=== PATIENT | female | born 1970 | race Caucasian/White ===

== ENCOUNTER → 2016-11-07 | Outpatient (CLI) | payer BC ==
--- NOTE | 2016-11-16 16:09 | DI ---
US BRST U/L OR B/L, MAMMO U/L DIAGNOSTIC, BREAST TOMOSYNTHESIS DIG U/L,11/07/2016 12:00 AM: Clinical History: Abnormal density seen within the left lower inner breast Previous Exam: Mammography performed October 27, 2016 Findings: CC and MLO views as well as breast tomosynthesis are obtained of the left breast revealing normal fib roglandular elements. Physical examination revealed no palpable abnormality. Sonographic evaluation revealed no palpable abnormality. Computer-aided diagnostics were applied. There is scattered fibroglandular elements. Impression: No mammographic nor sonographic evidence of malignancy. BIRADS: 2: Benign findings Recommendations: Annual screening. Note: Breast examination has been discussed and encouraged, and the patient informed to return if the re is any new palpable abnormality in the interval between screening. Overall imaging assessment: Benign findings.
== END ==
LOC: MAMMO 14:45
PROVIDERS: ATTEND Nurse Practitioner Family
DX: R92.8 Other abnormal and inconclusive findings on diagnostic imaging of breast (principal)
CPT/HCPCS: 76641; G0206; G0279

== ENCOUNTER 2017-03-26 16:01 | Observation (INO) ==
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
[2017-03-26] MEDS ORDERED: ONDANSETRON 4 MG/2 ML VIAL IVP ONE (16:35)
[2017-03-26] MEDS ORDERED: Sodium Chloride 0.9% 1,000 ML PRIMARY IV ONE (16:35)
[2017-03-26] MEDS ORDERED: HYDROmorphone 2 MG/1 ML IVP ONE (16:35)
[2017-03-26] MEDS ORDERED: KETOROLAC 15 MG/1 ML VIAL IVP ONE (16:35)
[2017-03-26] MEDS ORDERED: LORazepam 2 MG/1 ML VIAL IVP ONE (16:36)
[2017-03-26 16:47] LABS: BASOPHILS # (AUTO) 0.04 10*3/UL; BASOPHILS % (AUTO) 0.6 % (0-1); EOSINOPHILS # (AUTO) 0.18 10*3/UL; EOSINOPHILS % (AUTO) 2.8 % (0-8); Hematocrit [HCT] 38.7 % (37.0-47.0); Hemoglobin [HGB] 12.9 g/dL (12.0-16.0); LYMPHOCYTES # (AUTO) 1.93 10*3/uL; MEAN CORPUSCULAR HEMOGLOBIN 29.9 PG (27-31); MEAN CORPUSCULAR HGB CONC 33.3 g/dL (33-37); MEAN CORPUSCULAR VOLUME 89.6 FL (81-99); MONOCYTES % (AUTO) 7.8 % (5-15); NEUTROPHILS # (AUTO) 3.77 10*3/UL; NEUTROPHILS % (AUTO) 58.6 % (50-80); RED BLOOD COUNT 4.32 10^6/uL (4.20-5.40)
[2017-03-26 16:49] LABS: PLATELET MORPHOLOGY COMMENT NORMAL MORPHOLOGY (NORM); RBC MORPHOLOGY COMMENT NORMAL MORPHOLOGY (NORM); WBC MORPHOLOGY COMMENT NORMAL MORPHOLOGY (NORM)
[2017-03-26 17:06] LABS: BLOOD UREA NITROGEN 9 mg/dL (7-22); BUN/CREATININE RATIO 11.25 (6-20); MAGNESIUM 1.6 mg/dL (1.6-2.4); SERUM ALBUMIN 4.1 g/dL (3.5-4.8)
[2017-03-26] MEDS ORDERED: HYDROmorphone 2 MG/1 ML IVP PRN ×2 (17:37→20:01)
--- NOTE | 2017-03-26 17:42 | PDOC ---
HPI - History of Present Illness History of Present Illness: This very nice 46-year-old female with past medical history significant for severe arthritis comes to the ER the for severe right hip pain and uncontrollable at home she was seen in the ER last night for the same purposes x -rays and ultrasounds were negative for acute abnormalities x-ray did show severe arthritis she is very unsure of her footing hospitalists were asked to admit for pain control also orthopedic surgeons were consult for possible hip replacement if needed Past Medical History Medical History: Mixed connective tissue disease on immunosuppressive therapy which she has been off for a couple of weeks, Cymbalta, hypertension Tobacco Use: Current Some Day Smoker In the Past 12 Months, Have Used or Abuse Any of the Following Substance: None, Opiate Pain Medication Medication / Allergies Home Medications: Home Medications Medication Instructions Recorded Confirmed Type Lisinopril [Prinivil Tab] 20 mg PO DAILY 06/20/11 03/26/17 History DULoxetine HCl [Cymbalta] 60 mg PO BEDTIME 06/23/11 03/26/17 History Hydroxychloroquine Sulfate 2 tab PO QHS tab 07/05/15 03/26/17 History [Plaquenil] Cyclobenzaprine HCl [Flexeril] 10 mg PO Q8H PRN #20 tab 03/25/17 03/26/17 Rx oxyCODONE/APAP 7.5/325 Tab 1 - 2 ea PO Q6H PRN #20 tab 03/25/17 03/26/17 Rx [Percocet 7.5/325 Tab] Aspirin [Aspir 81] 81 mg PO DAILY 03/26/17 03/26/17 History Furosemide [Lasix] 40 mg PO DAILY 03/26/17 03/26/17 History Tofacitinib Citrate [Xeljanz Xr] 11 mg PO DAILY 03/26/17 03/26/17 History Allergies/Adverse Reactions: Allergies 3 Allergy/AdvReac Type Severity Reaction Status Date / Time hydromorphone HCl AdvReac Intermediate NAUSEA Verified 03/26/17 19:02 [From Dilaudid] Review of Systems - Review of Systems All Systems: Reviewed & No Additional Complaints Except as Stated - Respiratory Respiratory: DENIES: Negative System Review, Cough, Sputum, Dyspnea At Rest, Dyspnea with Exertion, Pleuritic Pain, Hemoptysis, Wheezing, Other, See HPI - Cardiovascular Cardiovascular: DENIES: Negative System Review, Chest Pain, Edema, Syncope, Palpitations, Orthopnea, Paroxysmal Nocturnal Dyspnea, Other, See HPI - Gastrointestinal Gastrointestinal / Abdominal: DENIES: Negative System Review, Nausea, Vomiting, Diarrhea, Constipation, Abdominal Pain, Bloody Stool, Poor Appetite, Heartburn, Regurgitation, Bloating, Lactose Intolerance, Melena, Bright Red Blood per Rectum, Other, See HPI - Musculoskeletal Musculoskeletal: REPORTS: Joint Pain - Hips - Neurological Neurologic: DENIES: Negative System Review, Headache, Numbness/Paresthesia, Tremors, Weakness, Seizures, Head Trauma, LOC, Dizziness, Confusion, Memory Loss , Difficulty Walking, Incoordination, Other, See HPI Exam - Vitals Vital Signs: Vital Signs Temperature 98.2 F Temperature Source Temporal Artery Scan Pulse Rate [Pulse Oximeter 101 Right] Respiratory Rate 18 Blood Pressure [Right Radial 160/119 Artery] Pulse Ox 98 Oxygen Delivery Method Room Air Height 5 ft 7 in Weight 270 lb - General General Appearance: No Acute Distress, Cooperative - Head Head Exam: Normal Inspection, Normocephalic, Atraumatic - Eye Eye Exam: POSITIVE: Normal Appearance, PERRL, EOMI, No Scleral Icterus - Respiratory Respiratory Exam: POSITIVE: Clear to Auscultation - Bilaterally, Breathing Non Labored, Normal To Percussion, Normal to Percussion and Palpation - Cardiovascular Cardiovascular Exam: POSITIVE: RRR, No Murmur, No Clicks, No Gallops, No Rubs, PMI Non-Displaced - GI/Abdominal GI/Abdominal Exam: POSITIVE: Normal Bowel Sounds, Non Tender, Non Distended, Soft, No Masses, No Hepatomegaly, No Splenomegaly, No Organomegaly - Extremities Extremities Exam: POSITIVE: Tenderness Additional Extremities Exam Details: Right hip pain even at rest with minimal movement Results - Labs CBC and BMP: 03/26/17 16:46 03/26/17 16:46 Assessment and Plan - Patient Problems (1) Hypokalemia Current Visit: Yes Status: Acute Comment: Replace with by mouth K-dur Code(s): E87.6 - Hypokalemia (2) Hip pain, right Current Visit: Yes Status: Acute Comment: consult ortho and pain controll with dilaudid Code(s): M25.551 - Pain in right hip (3) Osteoarthritis of right hip Current Visit: No Status: Acute Comment: Consult orthopedic surgery for evaluation dye lauded for pain management failed outpatient pain control Code(s): M16.11 - Unilateral primary osteoarthritis, right hip
[2017-03-26] MEDS ORDERED: ONDANSETRON 4 MG/2 ML VIAL IVP PRN (18:54)
[2017-03-26] MEDS ORDERED: ACETAMINOPHEN 325 MG TABLET PO PRN (18:54)
[2017-03-26] MEDS ORDERED: DOCUSATE 100 MG CAPSULE PO PRN (18:54)
[2017-03-26] MEDS ORDERED: CALCIUM CARBONATE 500 MG (TUMS) CHEWABLE TABLET PO PRN (18:54)
[2017-03-26] MEDS ORDERED: LIDOCAINE W/ SODIUM BICARB 0.5 ML SYR SUBD PRN (18:54)
[2017-03-26] MEDS ORDERED: HYDROXYCHLOROQUINE SULFATE PO SCH (21:00)
[2017-03-26] MEDS ORDERED: DULOXETINE 60 MG CAPSULE PO SCH (21:00)
[2017-03-26] MEDS: POTASSIUM CHLORIDE 20 MEQ TAB PO SCH (21:01)
[2017-03-27] MEDS: KETOROLAC 15 MG/1 ML VIAL IVP PRN ×3 (00:36→14:24)
[2017-03-27] MEDS: HYDROmorphone 2 MG/1 ML IVP PRN ×3 (02:26→12:45)
[2017-03-27] MEDS: NORMAL SALINE 10 ML SYRINGE FLUSH IVP PRN ×3 (07:55→14:24)
[2017-03-27] MEDS: POTASSIUM CHLORIDE 20 MEQ TAB PO SCH (08:25)
[2017-03-27] MEDS ORDERED: FUROSEMIDE 20 MG TABLET PO SCH (09:00)
[2017-03-27] MEDS ORDERED: DULOXETINE 60 MG CAPSULE PO SCH (09:00)
[2017-03-27] MEDS ORDERED: LISINOPRIL 20 MG TABLET PO SCH (09:00)
[2017-03-27] MEDS ORDERED: ASPIRIN EC 81 MG TABLET PO SCH (09:00)
[2017-03-27] MEDS ORDERED: Acetaminophen 1000mg Inj 1,000 MG/100 ML VIAL IV PRN ×2 (10:43→11:15)
--- NOTE | 2017-03-27 11:23 | PDOC(PROG) ---
Interval History: Patient is still complaining of pain in the right hip and thigh lauded this seems to work briefly Toradol did not work Tylenol is not working she is getting headaches from the dye lauded I discussed the case with orthopedic surgery he recommended the Marcaine injection under fluoroscopy from radiology department I called the radiology department and scheduled this she can be discharged home after her shot and follow-up with ourselves as already scheduled Objective : Data - Labs CBC and BMP: 03/26/17 16:46 03/26/17 16:46 Assessment and Plan - Patient Problems (1) Hypokalemia Current Visit: Yes Status: Acute Code(s): E87.6 - Hypokalemia (2) Hip pain, right Current Visit: Yes Status: Acute Code(s): M25.551 - Pain in right hip (3) Osteoarthritis of right hip Current Visit: No Status: Inactive Code(s): M16.11 - Unilateral primary osteoarthritis, right hip
--- NOTE | 2017-03-27 11:25 | DCSUMMARY ---
Hospitalization Summary Hospital Course: Final Discharge Diagnosis: Current Visit Problems Problem Status Onset Code Hip pain, right Acute M25.551 Hypokalemia Acute E87.6 Diagnostic Data, Laboratory Data, and Procedures of Signifigance: Laboratory Results 03/26/17 03/26/17 03/26/17 Range/Units 16:46 16:46 16:46 WBC 6.43 (4.8-10.8) 10^3/uL RBC 4.32 (4.20-5.40) 10^6/uL Hgb 12.9 (12.0-16.0) g/dL Hct 38.7 (37.0-47.0) % MCV 89.6 (81-99) FL MCH 29.9 (27-31) PG MCHC 33.3 (33-37) g/dL RDW Std Deviation 47.4 (39-50) fL RDW Coeff of Delgado 14.8 H (11.5-14.5) % Plt Count 304 (140-350) 10*3/uL MPV 10.0 (7.4-12.2) FL Immature Gran % (Auto) 0.2 (0-5) % Neut % (Auto) 58.6 (50-80) % Lymph % (Auto) 30.0 (10-50) % Wharton % (Auto) 7.8 (5-15) % Eos % (Auto) 2.8 (0-8) % Baso % (Auto) 0.6 (0-1) % Immature Gran # (Auto) 0.01 10*3/UL Neut # (Auto) 3.77 10*3/UL Lymph # (Auto) 1.93 10*3/uL Wharton # (Auto) 0.50 (0.3-0.8) 10*3/UL Eos # (Auto) 0.18 10*3/UL Baso # (Auto) 0.04 10*3/UL WBC Morphology Comment Normal morphology (NORM) Plt Morphology Comment Normal morphology (NORM) RBC Morph Comment Normal morphology (NORM) Sodium 142 (135-145) meq/L Potassium 3.5 L (3.8-5.2) meq/L Chloride 105 (98-112) meq/L Carbon Dioxide 26 (23-33) meq/L Anion Gap 11 (5-20) BUN 9 (7-22) mg/dL Creatinine 0.8 (0.50-1.20) mg/dL Estimated GFR > 60 (>60 ml/min/1.73m(2)) BUN/Creatinine Ratio 11.25 (6-20) Glucose 159 H (78-110) mg/dL Calculated Osmolality 295.0 H (267-292) mOsm/kg Calcium 9.0 (8.7-10.7) mg/dL Magnesium 1.6 (1.6-2.4) mg/dL Total Bilirubin 0.4 (0.3-1.2) mg/dL AST 48 H (8-39) IU/L ALT 78 H (9-52) IU/L Alkaline Phosphatase 47 (38-126) IU/L NT-Pro-B Natriuret Pep 76.4 (0-125) PG/ML Total Protein 7.2 (6.1-8.0) g/dL Albumin 4.1 (3.5-4.8) g/dL Globulin 3.1 (2.50-4.10) g/dL Albumin/Globulin Ratio 1.30 (1.3-2.0) mg/g History and Physical pertinent to Admission: This very nice 46-year-old female with arthritis of her right hip comes into the hospital because of uncontrolled pain she was admitted overnight for pain control. Course of Hospitalization: Patient is still complaining of pain in the right hip and thigh lauded this seems to work briefly Toradol did not work Tylenol is not working she is getting headaches from the dye lauded I discussed the case with orthopedic surgery he recommended the Marcaine injection under fluoroscopy from radiology department I called the radiology department and scheduled this she can be discharged home after her shot and follow-up with ortho which is already scheduled On the date of discharge, the patient was examined: Gen.: No acute distress, alert, nontoxic Heart: Regular rate and rhythm, no murmurs, clicks, gallops, or rubs Lungs: Clear to auscultation bilaterally, breathing is nonlabored Abdomen/GI: Normal tones on auscultation, soft, nontender, nondistended Musculoskeletal/extremities: No clubbing, cyanosis, or edema Vitals reviewed and are listed below Vital Signs (24 hrs) Temp Pulse Pulse Resp BP BP Pulse Ox 03/27/17 08:55 97.6 F 77 16 97/70 93 03/27/17 05:29 96 03/27/17 04:04 97.2 F 71 16 93/58 96 03/27/17 00:07 98.2 F 80 16 90/66 93 03/26/17 20:23 97.5 F 86 20 132/95 97 03/26/17 19:13 97.5 F 86 20 132/95 97 03/26/17 19:00 97.2 F 76 16 135/84 99 03/26/17 16:22 98.2 F 101 H 18 160/119 98 Assessment and Plan: 1. As per discharge assessments above 2. Disposition: Home 3. Condition on discharge, stable and improved. 4. Diet: regular diet 5. Activities: resume normal activities 6. Follow-Up: Orthopedic surgery patient already has appointment 1. PCP 2. 7. Medications at the Time of Discharge: Home Medications Medication Instructions Recorded Confirmed Type Lisinopril [Prinivil Tab] 20 mg PO DAILY 06/20/11 03/26/17 History DULoxetine HCl [Cymbalta] 60 mg PO BEDTIME 06/23/11 03/26/17 History Hydroxychloroquine Sulfate 2 tab PO QHS tab 07/05/15 03/26/17 History [Plaquenil] Cyclobenzaprine HCl [Flexeril] 10 mg PO Q8H PRN #20 tab 03/25/17 03/26/17 Rx oxyCODONE/APAP 7.5/325 Tab 1 - 2 ea PO Q6H PRN #20 tab 03/25/17 03/26/17 Rx [Percocet 7.5/325 Tab] Aspirin [Aspir 81] 81 mg PO DAILY 03/26/17 03/26/17 History Furosemide [Lasix] 40 mg PO DAILY 03/26/17 03/26/17 History Tofacitinib Citrate [Xeljanz Xr] 11 mg PO DAILY 03/26/17 03/26/17 History 3 Generic Name Dose Route Start Last Admin Trade Name Freq PRN Reason Stop Dose Admin Acetaminophen 650 mg 03/26/17 18:54 Tylenol PO Q6H PRN Pain or Fever Aspirin 81 mg 03/27/17 09:00 03/27/17 08:24 Aspirin Ec PO 81 mg DAILY WILFRED Administration Calcium Carbonate 1 - 2 tab 03/26/17 18:54 Tums PO Q6H PRN Heartburn Docusate Sodium 100 mg 03/26/17 18:54 03/27/17 08:25 Colace PO 100 mg BID PRN Administration Constipation Duloxetine HCl 60 mg 03/27/17 09:00 03/27/17 09:26 Cymbalta PO 60 mg DAILY WILFRED Administration Furosemide 40 mg 03/27/17 09:00 03/27/17 08:24 Lasix PO 40 mg DAILY WILFRED Administration Hydromorphone HCl 1 mg 03/27/17 00:16 03/27/17 08:25 Dilaudid Inj IVP 1 mg Q4H PRN Administration Pain Acetaminophen 1,000 mg in 100 mls @ 400 mls/hr 03/27/17 11:15 03/27/17 11:18 Ofirmev 1000mg Inj IV 400 mls/hr Q8H PRN Administration Pain Ketorolac Tromethamine 15 mg 03/27/17 00:15 03/27/17 07:54 Toradol Inj IVP 15 mg Q6H PRN Administration Pain Lidocaine HCl 0.5 ml 03/26/17 18:54 Lidocaine Buffered Inj SUBD ONCE PRN IV Starts Lisinopril 20 mg 03/27/17 09:00 03/27/17 08:24 Prinivil PO 20 mg DAILY WILFRED Administration Non-Formulary Medication 2 tab 03/26/17 21:00 03/26/17 21:01 Hydroxychloroquine Sulfate [Plaquenil] PO 2 tab BEDTIME WILFRED Administration Non-Formulary Medication 11 mg 03/27/17 14:00 Tofacitinib Citrate [Xeljanz Xr] PO DAILY@1400 WILFRED Ondansetron HCl 4 mg 03/26/17 18:54 Zofran Inj IVP Q4H PRN NAUSEA / VOMITING Potassium Chloride 40 meq 03/26/17 21:00 03/27/17 08:25 Klor-Con PO 40 meq BID WILFRED Administration Sodium Chloride 5 - 20 ml 03/26/17 18:54 03/27/17 07:55 Saline Flush IVP 10 ml BID PRN Administration Flush 8. Time, care, counseling and coordination of care for this discharge is greater than 30 minutes. Exam - Vitals Vital Signs: Vital Signs Temperature 97.6 F Temperature Source Temporal Artery Scan Pulse Rate [Pulse Oximeter 77 Right] Pulse Rate 76 Respiratory Rate 16 Blood Pressure [Right Radial 97/70 Artery] Blood Pressure 135/84 Pulse Ox 93 Oxygen Flow Rate 2 Oxygen Delivery Method Room Air Height 5 ft 7 in Weight 291 lb 9.6 oz Patient Problems - Patient Problem List (1) Hypokalemia Current Visit: Yes Status: Acute Code(s): E87.6 - Hypokalemia Category: Medical (2) Hip pain, right Current Visit: Yes Status: Acute Code(s): M25.551 - Pain in right hip Category: Medical (3) Osteoarthritis of right hip Current Visit: No Status: Inactive Code(s): M16.11 - Unilateral primary osteoarthritis, right hip Category: Medical
[2017-03-27 15:27] VITALS: BP 113/84; RESP 20; TEMP 97.8; O2SAT 94
--- NOTE | 2017-03-27 16:38 | DI ---
Fluoroscopically guided right hip steroid injection, March 27, 2017. History: Osteoarthritis. Severe hip pain. Comparison: March 25, 2017. Procedure: The procedure was described in detail to the patient. The patient elected to proceed. Writ ten informed consent was obtained. The patient was then placed on fluoroscopy table and the right hip was localized. The skin was prepped and draped in a sterile manner and anesthetized with 1% lidocain e. Utilizing fluoroscopic guidance, a 22-gauge spinal needle was advanced into the right femoral acet abular joint through an anterior oblique approach. Small amount of contrast was injected to confirm n eedle placement. Subsequently 40 mg Kenalog steroid and 2 mL 0.5% ropivacaine was injected without di fficulty. The patient tolerated the procedure well. Total fluoroscopy time: 0.8 minutes Number images: 7 Impression: Successful fluoroscopically guided right hip steroid injection.
== END 2017-03-27 16:23 | disposition home or self-care (01) ==
LOC: MED/SURG 16:01 → ER 16:01
PROVIDERS: ADMIT Internal Medicine; ATTEND Internal Medicine

== ENCOUNTER 2018-02-21 10:41 | Observation (INO) ==
[~2018-02-21 10:41] MED LIST: LIDOCAINE W/ SODIUM BICARB 0.5 ML SYR SUBD ONE; Lactated Ringers 1,000 ML PRIMARY IV ONE; Nasal Sanitizer POPSWAB ampule 3 AMP (Nozin) PREOP DOSE ENOS SCH; ceFAZolin Inj 2gm (Premix) 2 GM/50 ML BAG IV ONE
[2018-02-21] MEDS ORDERED: LIDOCAINE W/ SODIUM BICARB 0.5 ML SYR ONE ×3 (10:48→12:06)
[2018-02-21] MEDS ORDERED: Lactated Ringers 1,000 ML PRIMARY IV ONE ×3 (10:48→17:55)
[2018-02-21] MEDS ORDERED: ceFAZolin Inj 3 GM in Sodium Chloride 0.9% 100 ML IV ONE (11:30)
[2018-02-21] MEDS: HYDROmorphone 2 MG/1 ML IVP PRN ×2 (13:55→14:01)
[2018-02-21] MEDS ORDERED: DEXAMETHASONE PF 10 MG/1 ML VIAL ONE (14:43)
[2018-02-21] MEDS ORDERED: Sodium Chloride 0.9% vial 10 ML ONE (14:43)
[2018-02-21] MEDS ORDERED: BUPIVACAINE 0.25% W/ EPI - 10 ML VIAL ONE (14:43)
[2018-02-21] MEDS ORDERED: BACITRACIN 50,000 UNIT VIAL IRRIG ONE (14:43)
[2018-02-21] MEDS ORDERED: Propofol 1,000 MG/100 ML VIAL IV ONE ×2 (15:50→17:52)
[2018-02-21] MEDS ORDERED: REMIFENTANIL 1 MG/1 ML IV ONE (15:52)
[2018-02-21] MEDS ORDERED: REMIFENTANIL HCL 2 MG VIAL IV ONE (15:52)
[2018-02-21] MEDS ORDERED: LIDOCAINE MPF 2% - 5 ML (20 MG/1 ML) ONE (15:56)
[2018-02-21] MEDS ORDERED: fentaNYL Inj 250 MCG/5 ML VIAL ONE ×3 (15:56→19:54)
[2018-02-21] MEDS ORDERED: MIDAZOLAM 5 MG/1 ML ONE (15:56)
[2018-02-21] MEDS ORDERED: PROPOFOL 10 MG/1 ML (200 MG/20 ML) VIAL IV ONE ×3 (15:58→19:14)
[2018-02-21] MEDS ORDERED: ONDANSETRON 4 MG/2 ML VIAL ONE (16:04)
[2018-02-21] MEDS ORDERED: Lactated Ringers 2,000 ML PRIMARY IV ONE (17:13)
[2018-02-21] MEDS ORDERED: Nalbuphine Inj 20 MG/ML Ampule IVP PRN (19:47)
[2018-02-21] MEDS ORDERED: LIDOCAINE W/ SODIUM BICARB 0.5 ML SYR SUBD PRN (19:47)
[2018-02-21] MEDS ORDERED: fentaNYL Inj 100 MCG/2 ML VIAL IVP PRN (19:47)
[2018-02-21] MEDS ORDERED: KETOROLAC 15 MG/1 ML VIAL IM PRN (19:47)
--- NOTE | 2018-02-21 19:49 | CRNA.PROGR ---
Anesthesia Recovery Phase I - Post Anesthesia Evaluation Pain Level: 5
--- NOTE | 2018-02-21 19:50 | CRNA.PROGR ---
Anesthesia Time - Procedure/Recovery Time Start Date: 02/21/18 End Date: 02/21/18 Anesthesia : Time In: 16:12 Anesthesia : Time Out: 19:42 Anesthesia : Total Time: 210 - Total Anesthesia Time Total Anesthesia Time (minutes): 210 - Other Weight: 128.82 kg Height: 5 ft 7 in Body Mass Index (BMI): 44.4 Physical Status: P3 Anesthesia Type: General Anesthesia : ET (TIVA)
[2018-02-21] MEDS: fentaNYL Inj 250 MCG/5 ML VIAL IVP PRN ×3 (19:53→20:30)
[2018-02-21] MEDS ORDERED: KETOROLAC 30 MG/1 ML VIAL ONE (19:53)
[2018-02-21] MEDS ORDERED: OXYMETAZOLINE 0.05% 15 ML NASAL SPRAY ONE (19:54)
--- NOTE | 2018-02-21 20:02 | NEURO.PROG ---
Subjective Post Op Day: 0 Pain Management: IV Franklin Catheter: Yes Diet: Regular Ambulating: No Additional Details: Waking up in PACU. States leg feels better. Moving all extremities. Good knee flexion/dorsiflexion/plantarflexion bilaterally. PLAN: Transfer to floor when ready. Continue post-operative antibiotics. Continue post-operative pain control. Advance diet. Mobilize in am. Objective : Data - Vital Signs Vital Signs and I&O: Intake and Output (24hr x 4 totals) 02/19/18 02/20/18 02/21/18 02/22/18 05:59 05:59 05:59 05:59 Output Total 950 / 950 Balance -950 / -950
[2018-02-21] MEDS ORDERED: KETOROLAC 30 MG/1 ML VIAL IVP ONE (20:21)
[2018-02-21] MEDS ORDERED: PROMETHAZINE 25 MG/1 ML VIAL IM PRN (20:35)
[2018-02-21] MEDS ORDERED: HYDROcodone-APAP 5 MG -325 MG TABLET PO PRN (20:35)
[2018-02-21] MEDS ORDERED: Metoclopramide Inj 10 MG/2 ML VIAL IVP PRN (20:35)
[2018-02-21] MEDS ORDERED: HYDROcodone-APAP 10 MG-325 MG TABLET PO PRN (20:35)
[2018-02-21] MEDS ORDERED: HYDROcodone-APAP 7.5 MG-325 MG TABLET PO PRN (20:35)
[2018-02-21] MEDS ORDERED: Vancomycin-PHA to Dose IV SCH (20:35)
[2018-02-21] MEDS ORDERED: BISACODYL 5 MG TABLET PO PRN (20:35)
[2018-02-21] MEDS ORDERED: Prochlorperazine Edisylate Inj 10mg/2ml vial IVP PRN (20:35)
[2018-02-21] MEDS ORDERED: DOCUSATE 100 MG CAPSULE PO PRN (20:35)
[2018-02-21] MEDS ORDERED: MAGNESIUM CITRATE 296 ML SOLUTION PO PRN (20:35)
[2018-02-21] MEDS ORDERED: Ondansetron ODT Tab 4 MG TAB PO PRN (20:35)
[2018-02-21] MEDS ORDERED: Fleet Enema 133ml RECTAL PRN (20:35)
[2018-02-21] MEDS ORDERED: MAGNESIUM 400 MG/5 ML - 30 ML (MILK OF MAGNESIA) PO PRN (20:35)
[2018-02-21] MEDS: Dexamethasone Tab 4 MG TABLET PO SCH (21:05)
[2018-02-21] MEDS: MORPHINE SULFATE 2 MG/1 ML IVP PRN (21:18)
[2018-02-21] MEDS: Pregabalin Cap 150mg capsule PO SCH (22:00)
[2018-02-21] MEDS ORDERED: fentaNYL Inj 250 MCG/5 ML VIAL IVP ONE (22:26)
[2018-02-21] MEDS: oxyCODONE/APAP 10/325 Tab 1 EACH TAB PO PRN (22:51)
--- NOTE | 2018-02-21 22:55 | CONSULT ---
Consult Note - Consult Consult Date: 02/21/18 Requesting Physician: Dr. Pham Primary Care Provider: SILVINO LONG - History of Present Illness History of Present Illness: This is a 47 years old female with medical history significant for history of hypertension, diabetes, rheumatoid arthritis on Xeljanz who was admitted to the hospital to have back surgery and was done by Dr. Pham today. The hospitalist service were consulted for management of medical issues. Apart from pain in her back she is denying other symptoms. There is no nausea, no shortness of breath. Past Medical History Medical History: 1. Rheumatoid arthritis on Xeljanz. 2. Hypertension were controlled. 3. Diabetes on metformin well-controlled. 4. On Cymbalta for pain control Surgical History: 1. History of hysterectomy. 2. History of cholecystectomy. 3. History of tonsillectomy. 4. History of previous back surgery Family History: Reviewed an Not Pertinent Past Social History: Does not smoke or drink now drugs. Tobacco Use: Never Smoker In the Past 12 Months, Have Used or Abuse Any of the Following Substance: Opiate Pain Medication Alcohol Use: None Review of Systems - Review of Systems All Systems: Reviewed & No Additional Complaints Except as Stated Medication / Allergies Home Medications: Home Medications 3 Medication Instructions Recorded Confirmed Type Lisinopril [Prinivil Tab] 20 mg PO DAILY 06/20/11 02/21/18 History DULoxetine HCl [Cymbalta] 60 mg PO BEDTIME 06/23/11 02/21/18 History Furosemide [Lasix] 40 mg PO DAILY 03/26/17 02/21/18 History Tofacitinib Citrate [Xeljanz Xr] 11 mg PO DAILY 03/26/17 02/21/18 History Pregabalin [Lyrica] 150 mg PO BID 01/22/18 02/21/18 History metformin 500 mg tablet 500 mg PO QDAY tab 01/31/18 02/21/18 History hydroxychloroquine 200 mg tablet 200 mg PO QDAY tab 02/07/18 02/21/18 History Docusate Sodium [Colace] 100 mg PO BID PRN cap 02/22/18 Rx oxyCODONE/APAP 10/325 Tab 1 - 2 ea PO Q6H PRN #60 tab 02/22/18 Rx [Percocet 10/325 Tab] Allergies/Adverse Reactions: Allergies 3 Allergy/AdvReac Type Severity Reaction Status Date / Time No Known Allergies Allergy Verified 02/21/18 11:06 Exam - Vitals Vital Signs: Vital Signs Temperature 96.8 F Temperature Source Temporal Artery Scan Pulse Rate [Pulse Oximeter] 92 Pulse Rate 98 Respiratory Rate 20 Blood Pressure [Right Radial 103/71 Artery] Blood Pressure 103/69 Pulse Ox 92 Oxygen Flow Rate 2 Oxygen Delivery Method Nasal Cannula Height 5 ft 7 in Weight 284 lb - General General Appearance: Cooperative, Obese Additional General Exam Details: Appears in pain - Head Head Exam: Normal Inspection - Eye Eye Exam: POSITIVE: Normal Appearance - ENT ENT Exam: POSITIVE: Normal Exam - Neck Neck Exam: Normal Inspection - Respiratory Respiratory Exam: POSITIVE: Clear to Auscultation - Bilaterally - Cardiovascular Cardiovascular Exam: POSITIVE: RRR - GI/Abdominal GI/Abdominal Exam: POSITIVE: Normal Bowel Sounds, Non Tender, Non Distended, Soft, No Organomegaly - Rectal Rectal Exam: POSITIVE: Deferred - External Exam: POSITIVE: Deferred - Extremities Extremities Exam: POSITIVE: Normal Inspection - Neurological Neurological Exam: POSITIVE: Alert, Oriented x 3, CN II-XII Intact, No Facial Droop, Speech Intact / Clear - Psychiatric Psychiatric Exam: POSITIVE: Normal Affect Results - Labs CBC and BMP: 02/22/18 07:25 02/22/18 07:25 Assessment and Plan - Patient Problems (1) Chronic back pain Current Visit: No Status: Acute Comment: Status post surgery management per Dr. Pham Code(s): M54.9 - Dorsalgia, unspecified; G89.29 - Other chronic pain (2) Hypertension Current Visit: No Status: Acute Comment: I think we'll hold lisinopril for now. We'll see what is her blood pressure in the morning and then will decide to continue with our hold it. Code(s): I10 - Essential (primary) hypertension (3) History of rheumatoid arthritis Current Visit: Yes Status: Acute Comment: We'll hold off on her Xeljanz tomorrow. Code(s): Z87.39 - Personal history of other diseases of the musculoskeletal system and connective tissue
[2018-02-22] MEDS: ceFAZolin Inj 1 GM in Sodium Chloride 0.9% 100 ML IV SCH ×2 (02:13→10:38)
[2018-02-22] MEDS: ONDANSETRON 4 MG/2 ML VIAL IVP PRN ×2 (02:20→09:16)
[2018-02-22] MEDS: Dexamethasone Tab 4 MG TABLET PO SCH ×2 (02:20→09:16)
[2018-02-22] MEDS: oxyCODONE/APAP 10/325 Tab 1 EACH TAB PO PRN ×3 (02:22→10:50)
[2018-02-22] MEDS ORDERED: PANTOPRAZOLE 40 MG TABLET PO SCH (07:00)
--- NOTE | 2018-02-22 07:28 | NEURO.PROG ---
Subjective Post Op Day: 1 Pain Management: PO (1) Franklin Catheter: No Diet: Regular Additional Details: Dr Pham was here to visit with and examine patient this morning. Her 10/ surgical pain from last night is much improved and she has good bilateral leg strength. The preoperative leg pain on the right is completely gone. Plan for today will be to mobilize with PT this morning and if she continues to have good pain control she could discharge to home today. I went over activity and wound management with her. Objective : Data - Vital Signs Vital Signs and I&O: Vital Signs - Last Taken Temperature 97.2 F 02/22/18 04:37 Pulse Rate 73 02/22/18 04:37 Respiratory Rate 16 02/22/18 00:42 Blood Pressure 102/62 02/22/18 04:37 Pulse Ox 91 02/22/18 04:37 Intake and Output (24hr x 4 totals) 02/20/18 02/21/18 02/22/18 02/23/18 05:59 05:59 05:59 05:59 Intake Total 5825 / 5825 992 / 992 Output Total 2150 / 2150 Balance 3675 / 3675 992 / 992
[2018-02-22 07:29] LABS: BASOPHILS # (AUTO) 0 10*3/UL; BASOPHILS % (AUTO) 0 % (0-1); EOSINOPHILS # (AUTO) 0 10*3/UL; EOSINOPHILS % (AUTO) 0 % (0-8); Hematocrit [HCT] 36.2 % (37.0-47.0); Hemoglobin [HGB] 11.7 g/dL (12.0-16.0); LYMPHOCYTES # (AUTO) 1.03 10*3/uL; MEAN CORPUSCULAR HEMOGLOBIN 29.3 PG (27-31); MEAN CORPUSCULAR HGB CONC 32.3 g/dL (33-37); MEAN CORPUSCULAR VOLUME 90.5 FL (81-99); MEAN PLATELET VOLUME 10.6 FL (7.4-12.2); MONOCYTES # (AUTO) 0.18 10*3/UL (0.3-0.8); NEUTROPHILS # (AUTO) 7.82 10*3/UL; NEUTROPHILS % (AUTO) 86.6 % (50-80)
[2018-02-22 07:53] LABS: BLOOD UREA NITROGEN 8 mg/dL (7-22); BUN/CREATININE RATIO 13.33 (6-20)
[2018-02-22 08:02] LABS: PLATELET MORPHOLOGY COMMENT NORMAL MORPHOLOGY (NORM); RBC MORPHOLOGY COMMENT NORMAL MORPHOLOGY (NORM); WBC MORPHOLOGY COMMENT NORMAL MORPHOLOGY (NORM)
[2018-02-22] MEDS ORDERED: HYDROXYCHLOROQUINE SULFATE 200 MG PO SCH (09:00)
[2018-02-22] MEDS ORDERED: DULOXETINE 60 MG CAPSULE PO SCH (09:00)
[2018-02-22] MEDS ORDERED: LISINOPRIL 20 MG TABLET PO SCH (09:00)
[2018-02-22] MEDS ORDERED: FUROSEMIDE 20 MG TABLET PO SCH (09:00)
[2018-02-22] MEDS ORDERED: metFORMIN 500 MG TABLET PO SCH (09:00)
[2018-02-22] MEDS: Pregabalin Cap 150mg capsule PO SCH (09:16)
[2018-02-22] MEDS: MORPHINE SULFATE 2 MG/1 ML IVP PRN (09:37)
[2018-02-22 11:24] VITALS: BP 104/54; RESP 20; TEMP 97.7; O2SAT 95
--- NOTE | 2018-02-22 14:07 | OTI REPORT ---
Thank you for the referral of Lexus Saravia. She was seen on 02/22/18 for an occupational therapy inpatient evaluation. SUBJECTIVE: The patient is a 47-year-old female who stated that overall her back is feeling pretty good; however, she still struggles with getting in and out of bed. She was trying to lay on her side when getting into bed and then backing up with her back and this was causing a lot of pain. She is also having a lot of difficulty with toileting and is worried about breaking her back precautions by twisting her back to wipe. Prior to admission the patient was getting some help from her family. Her right leg is definitely worse than her left leg; however, she reports that the pain she was experiencing before surgery is all gone and she doesn't have any of the nerve pain that she had been having for years. PAST MEDICAL HISTORY: Past medical history can be found in the patient's medical record. OBJECTIVE FINDINGS: Bed mobility: The patient was able to come from supine to sit independently; however, her facial expressions did suggest she was having pain. The patient did log roll to perform bed mobility. We did review using her forearm and hand to push more. She was also shown how to log roll in bed from a side-lying to supine position. Pain: The patient reports that her pain increases to a 7/10 on the verbal analog scale (0=no pain, 10=worst pain) when sitting up. Activities of daily living: The patient practiced using the ironworker apprentice to doff socks as well as don pants which she was able to do independently. The patient reports that she has a ironworker apprentice at home but it does not have the component of taking off her socks, which she stated worked better. She does have a sock aide at home from a previous hip surgery. The patient was issued a bath sponge for independence with washing her back and lower legs. The patient was instructed on how to use toilet tongs. The patient practiced simulating this activity and she was issued a toilet aide for increased independence with toilet hygiene. Transfers: The patient was able to transfer from sit to stand with contact guard assist. Ambulation: The patient ambulated slightly in the room with contact guard assist. ASSESSMENT: The patient did well with occupational therapy. She was issued a ironworker apprentice, bath sponge, and toilet aide for increased independence with her ADLs including dressing tasks at home. Occupational Therapy Goals: To be met following discharge from inpatient: Patient will use adaptive devices to increase independence and follow back precautions. TREATMENT PLAN: Patient will be discharged from OT at this time. INITIAL TREATMENT: Treatment today consisted of the initial evaluation activities only. MICHELLE
--- NOTE | 2018-02-23 10:09 | NEURO.DC ---
Discharge Summary Admit Date: 02/21/18 Discharge Date: 02/22/18 Admitting Diagnosis: Herniated disc L4-L5 Discharge Diagnosis: same Primary Surgery and Date: Microlumbar Discectomy L4-L5 Hospital Course: Ms Saravia was admitted to [facility] [place] to undergo the above noted procedure. She was taken to the recovery room in stable condition and progressed to Med/Surg. Her post op course was uneventful. She mobilized without difficulty and was able to get good post op pain control. Her preoperative symptoms of pain and weakness had completely resolved. At the time of discharge she was ambulating without difficulty. She was given neuro post op instructions, to include activity and wound care. She was given a post op appointment with Dr. Pham in 2 weeks. Discharge Medications: Discharge Medications Lisinopril [Prinivil Tab] 20 mg PO DAILY 06/20/11 [History] DULoxetine HCl [Cymbalta] 60 mg PO BEDTIME 06/23/11 [History] Furosemide [Lasix] 40 mg PO DAILY 03/26/17 [History] Tofacitinib Citrate [Xeljanz Xr] 11 mg PO DAILY 03/26/17 [History] Pregabalin [Lyrica] 150 mg PO BID 01/22/18 [History] metformin 500 mg tablet 500 mg PO QDAY tab 01/31/18 [History] hydroxychloroquine 200 mg tablet 200 mg PO QDAY tab 02/07/18 [History] Docusate Sodium [Colace] 100 mg PO BID PRN cap 02/22/18 [Rx] oxyCODONE/APAP 10/325 Tab [Percocet 10/325 Tab] 1 - 2 ea PO Q6H PRN #60 tab [Rx] Follow-Up: SILVINO LONG [Primary Care Provider] - As Needed Irving Pham [STAFF PHYSICIAN] - 03/08/18 10:15 am (Follow up on Mar [address] Pham's [place] office.) Discharge Instructions Provided to Patient / Family: Oxycodone/Acetaminophen ( By mouth) Exam - Vitals Vital Signs: Vital Signs Temperature 97.7 F Temperature Source Temporal Artery Scan Pulse Rate [Pulse Oximeter] 77 Pulse Rate 98 Respiratory Rate 20 Blood Pressure [Right Radial 104/54 Artery] Blood Pressure 103/69 Pulse Ox 95 Oxygen Flow Rate 2 Oxygen Delivery Method Room Air Height 5 ft 7 in Weight 135.715 kg
--- NOTE | 2018-02-25 07:26 | GEN.OPNOTE ---
Operative Note Surgery Date: 02/21/18 Preoperative Diagnosis: Right L3 radiculopathy. Right L2-3 caudally migrated herniated nucleus propulsis. Postoperative Diagnosis: Same. Procedure: 1.) Right L2-3 microlumbar discectomy. (CPT code: 49757). 2.) Use of the operative microscope for microsurgical techniques used to perform the discectomy. (CPT code: 47518). 3.) Use of intra-operative fluoroscopy for localization of correct surgical level. 4.) Use of intra-operative neuromonitoring including free running EMG's and SSEP's to access nerve function during the procedure. Surgeon: Irving Pham MD Loss Control Manager: HOLLAND Zarate Anesthesia Type: General Estimated Blood Loss (mL): 30 Fluids: See anesthesia record Pathology: None Indications: Ms. Saravia is a 47 year old woman kindly refered by HOLLAND Caballero in [place]. She presented with low back and right leg pain. She woke up on January 07, 2018 with this pain. She says her low back pain is just an ache, but her right leg pain is more severe. Ms. Saravia has tingling going down her right leg to her beth. She has right leg weakness and walks with a cane. Non- operative treatments were not providing durable relief of her symptoms. She wished to proceed with surgical treatment. Findings: Subligamentous right L2-3 herniated nucleus propulsis migrated caudally into the lateral recess Complications: None Operative Summary: Ms. Saravia was met in the preoperative area. Her surgical history and physical was updated. The procedure to be performed was confirmed with Ms. Saravia and we were in agreement on the procedure to be performed and this matched what was written on the patient's consent form. Any questions that Mrs. Saravia or family members had were answered before she was taken back to the operating room suite. Ms. Saravia was brought back to the operating room suite and put under general anesthesia and intubated by the anesthesia staff. She had a Franklin catheter placed or bladder for the procedure. She had pneumatic compression hose placed on her lower legs bilaterally. Ms. Saravia was carefully rolled over into the prone position on the [place] surgical table. Her arms were gently positioned upwards with her shoulders abducted less than 90. Her arms were well-padded with foam padding on top of the padding of the surgical armboards. The region of her chest and axilla was checked bilaterally to be sure that there were no pressure points over the region of the brachial plexus bilaterally. Her breasts were checked to be below the chest pad of the [place]a table with no pressure points over the nipples. All bony prominences were well padded. Her Franklin catheter was checked be free from kinks. The C-arm fluoroscopy unit was used to help localize the skin incision for the approach to the intended surgical level. The skin was marked with a skin marker and crosshatches were made as well. Ms. Saravia was prepped and draped in the usual and standard fashion. She was given 2 g of Ancef and 1 g of vancomycin IV for perioperative antibiosis. She was given 10 mg of Decadron IV. A standard surgical timeout was performed identifying the correct patient, the patient's symptoms, the correct procedure, and the correct equipment being available for the procedure. The intended skin incision was injected subcutaneously with quarter percent Marcaine with 1 in 200,000 epinephrine. The skin was incised with a 10 blade scalpel and all dermal and superficial bleeding points were controlled with bipolar cautery. Dissection was continued down through the subcutaneous tissue to the lumbar fascia. The lumbar fascia was incised along the border the spinous processes on the right with Bovie cautery and subperiosteal dissection was performed down the spinous processes and out over the lamina using Bovie cautery. When the inferior aspect the lamina became exposed a Montgomery 4 was placed underneath the lamina and the level was localized with lateral fluoroscopy. The L2-3 level on the right was identified. Continued subperiosteal dissection was performed exposing the majority of the L2 lamina and L3 lamina and the medial aspect of the L2-3 facet joint on the right. A Reginald retractor was placed for self-retaining retraction. The operative microscope was brought into the surgical field and used for the microsurgical techniques used for the discectomy. The high-speed Shahab P. Tabatabai, Broker Javon drill with a matchstick bit was used to perform a hemilaminotomy and medial facetectomy. An up angled curette was used to dissect the insertion of the yellow ligament from underneath the remaining aspect of the L2 lamina. The plane between the yellow ligament and the dura was established with a nerve hook. The yellow ligament was completely removed in the hemilaminotomy/medial facetectomy site exposing the right half the thecal sac at this level and the transversing L3 nerve root. A Montgomery 4 instrument was used to carefully dissect the soft tissue adjacent to the takeoff of the transversing L3 nerve root. This allowed identification of the L2-3 disc space. The Mariela nerve root retractor was used to gently retract the thecal sac and the transversing right L3 nerve root identifying the subligamentous disc herniation at this level as well as the caudally migrated component in the lateral recess. Epidural veins over the disc space were coagulated with bipolar cautery turned down to a low setting and cut with microscissors. An annulotomy was performed with a 15 blade scalpel and disc material was removed with a pituitary rongeur. Additional disc was loosened in the disc space using a medium down-biting Zeina curette. Additional disc was removed from the disc space using straight , up angled, and backbiting pituitary rongeurs. The caudally migrated component of the disc herniation was removed by dissecting with the down-biting curet moving this caudally migrated component of the disc into the disc space proper with the fragments removed with a pituitary rongeur. The disc space proper was irrigated with a directional assistant general manager to flush out any additional fragments of loose disc material. Excellent decompression of the thecal sac, the transversing L3 nerve root, as well as the exiting L2 nerve root was confirmed both by visual inspection as well as by palpation with with [place] instrument around the bony aspects of the canal and the nerve structures within the canal and neuroforamen. A Montgomery 4 instrument was placed into the L2-3 disc space and AP and lateral images were performed to confirm that the surgery had been performed at the correct level. The surgical site was then copiously irrigated with bacitracin irrigation. FloSeal hemostatic agent was placed over all exposed dural elements. The closure portion of the procedure was begun. The fascia was closed tightly with #1 Vicryl suture in a interrupted fashion. The surgical site was again irrigated with bacitracin irrigation. The deep subcutaneous tissue and fascia was reapproximated with 2-0 Vicryl suture in a interrupted fashion. The dermis and superficial subcutaneous tissue was reapproximated with 3-0 Vicryl suture in an inverted interrupted fashion. The final layer of closure was performed with 4-0 Monocryl in a running subcuticular fashion. The Ioban drape was pulled back from the skin edges and the incision was cleansed with bacitracin soaked sponge and dried with a sterile dry sponge. Steri-Strips were placed across the incision. The incision was dressed with a Mepilex dressing. All surgical drapes removed from Ms. Saravia. She was carefully rolled over onto the PACU stretcher. She was awoken within awoken and extubated by the anesthesia staff. She was taken to the recovery room in stable condition. All surgical counts reported as correct by the scrub and circulating personnel. A physician's family readiness support assistant, yanique Mancini assisted with the procedure including the exposure and closure portions of the procedure. She also provided irrigation and suctioning throughout the procedure. She also skillfully and carefully retracted the nerve structures during the more critical portion of the procedure, the removal of the disc from the interspace.
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
== END 2018-02-22 12:59 | disposition home or self-care (01) ==
LOC: MED/SURG 10:41 → OR 10:41
PROVIDERS: ADMIT Neurological Surgery; ATTEND Neurological Surgery

== ENCOUNTER 2018-08-02 13:51 | Observation (INO) ==
[2018-08-02] MEDS ORDERED: ONDANSETRON 4 MG/2 ML VIAL IVP ONE (14:00)
[2018-08-02] MEDS ORDERED: MORPHINE SULFATE 4 MG/1 ML IVP ONE (14:00)
[2018-08-02] MEDS ORDERED: Sodium Chloride 0.9% 1,000 ML PRIMARY IV ONE (14:00)
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
[2018-08-02] MEDS: NITROGLYCERIN 0.4 MG SL TAB (BOTTLE OF 3) SL ONE ×2 (14:20→14:40)
--- NOTE | 2018-08-02 14:33 | DI ---
AP CHEST X-RAY, 08/02/2018 2:00 PM : Clinical History: Atypical chest pain. Previous Exam: 06/18/2011. Soft Tissues: No acute soft tissue abnormality. Bones: Normal. Heart: Normal heart. Lungs: No infiltrates. Effusion(s): None. Mediastinum: Normal mediastinum. Nodules: No pulmonary nodules. Reading: Normal chest x-ray. There has been no significant interval change.
[2018-08-02 15:29] LABS: Hematocrit [HCT] 44.1 % (37.0-47.0); Hemoglobin [HGB] 14.9 g/dL (12.0-16.0); MEAN CORPUSCULAR HEMOGLOBIN 30.5 PG (27-31); MEAN CORPUSCULAR HGB CONC 33.9 g/dL (33-37); MEAN CORPUSCULAR VOLUME 90 FL (81-99); NEUTROPHILS % (AUTO) 49.7 % (50-80); RED BLOOD COUNT 4.89 10^6/uL (4.20-5.40)
[2018-08-02 15:30] LABS: BASOPHILS # (AUTO) 0.04 10*3/UL; BASOPHILS % (AUTO) 0.6 % (0-1); EOSINOPHILS # (AUTO) 0.14 10*3/UL; LYMPHOCYTES # (AUTO) 2.56 10*3/uL; MONOCYTES # (AUTO) 0.73 10*3/UL (0.3-0.8); MONOCYTES % (AUTO) 10.6 % (5-15); NEUTROPHILS # (AUTO) 3.42 10*3/UL; PLATELET MORPHOLOGY COMMENT NORMAL MORPHOLOGY (NORM); RBC MORPHOLOGY COMMENT NORMAL MORPHOLOGY (NORM); WBC MORPHOLOGY COMMENT NORMAL MORPHOLOGY (NORM)
[2018-08-02 15:41] LABS: BLOOD UREA NITROGEN 16 mg/dL (7-22); SERUM ALBUMIN 4.6 g/dL (3.5-4.8)
--- NOTE | 2018-08-02 16:10 | EKG ---
[address] [address] Measurements Intervals Gerber Rate: 89 P: 46 OH: 153 QRS: 49 QRSD: 92 T: 51 QT: 371 QTc: 417 Interpretive Statements SINUS RHYTHM Compared to ECG 08/02/2018 12:03:15 No significant changes Electronically Signed On 08-03-18 12:35:24 MDT by Jay Araiza [id number]
--- NOTE | 2018-08-02 18:18 | DI ---
CT ANGIOGRAM OF THE CHEST, 08/02/2018 4:03 PM : Clinical History: Shortness of breath. Previous Exam: 06/21/2011. Technique: Scans from base of neck to lung bases with IV contrast. Bolus tracking protocol was used f or timing the injection. Non-MIPS and MIPS sagittal/coronal images generated. IV Contrast: 65 mL of Isovue 370. Base of Neck: Normal. Nodes: Normal axillary, supraclavicular, mediastinal, and hilar lymph nodes. Heart: Normal. No coronary artery calcifications. Aorta: Normal thoracic aorta. No aneurysm or dissection. Pulmonary Arteries: Normal. No pulmonary emboli or infarcts. Pulmonary arterial hypertension is suspe cted with the pulmonary artery measuring greater than 29 mm in diameter. Lungs: No infiltrates. No evidence of pulmonary infarction. Effusion(s): None. Nodules: None. Bony Structures: Normal visualized portions of ribs, sternum, scapulae, clavicles, and shoulders. Nor mal visualized portions of thoracic spine. Limited Upper Abdomen: Normal adrenal glands and spleen. Normal limited views of the pancreas. Hepato megaly with diffuse fatty infiltration. READIN. Normal CTA of the chest. There are no pulmonary emboli or pulmonary infarcts. Pulmonary arterial hypertension is suspected. 2. Hepatomegaly with diffuse severe fatty infiltration.
--- NOTE | 2018-08-02 19:26 | PDOC ---
HPI - History of Present Illness Date of Service: 08/02/18 Time of Service: 19:45 Chief Complaint: Fatigue, shortness of breath, palpitation was standing up of 1 week duration History of Present Illness: This is a 47 years old female with medical history significant for history of diabetes, hypertension, history of rheumatoid arthritis, and fibromyalgia who was sent to the ER from the clinic as she been having symptoms of fatigue, shortness of breath, and palpitation when she stands up symptoms got worse the last few days and maybe worse today she did not go to work today because of feeling worse so she came into the clinic and from there she was sent to the ER. She did report some pain in her jaw and neck. In the ER she was given fluid and she was given also nitroglycerin. She had a CT of the chest which was negative for PE there is a suspicion of pulmonary hypertension. She continued to have tachycardia when she stands up so she was admitted. Currently she feels better as she is laying down. The neck/jaw pain is resolved. She said 2 weeks ago her blood pressure was elevated they added a diuretic however she thought that she was suppose to be only on diuretic and not to continue the lisinopril. However she went again a week ago and they told her to take both medications. In addition for her rheumatoid arthritis about 2 weeks ago she was started on sulfadiazine. Denies history of chest pain. Had nausea but no vomiting. No diarrhea. Past Medical History Medical History: 1. Rheumatoid arthritis on Xeljanz. 2. Hypertension. 3. Diabetes on metformin. 4. On Cymbalta for pain control. 5. Obesity. 6. History of fibromyalgia Surgical History: 1. History of hysterectomy. 2. History of cholecystectomy. 3. History of tonsillectomy. 4. History of previous back surgery. 5. History of left hip replacement Pertinent Family History: Mother had diabetes and from stroke. Past Social History: Does not smoke or drink now drugs. Tobacco Use: Former Smoker Do you dip or chew tobacco: No In the Past 12 Months, Have Used or Abuse Any of the Following Substance: None Medication / Allergies Home Medications: Home Medications Medication Instructions Recorded Confirmed Type Lisinopril [Prinivil Tab] 40 mg PO DAILY 06/20/11 08/02/18 History DULoxetine HCl [Cymbalta] 60 mg PO BEDTIME 06/23/11 08/02/18 History Furosemide [Lasix] 40 mg PO DAILY 03/26/17 08/02/18 History Tofacitinib Citrate [Xeljanz Xr] 11 mg PO DAILY 03/26/17 08/02/18 History Pregabalin [Lyrica] 150 mg PO BID 01/22/18 08/02/18 History metformin 500 mg tablet 1,000 mg PO BID tab 01/31/18 08/02/18 History hydroxychloroquine 200 mg tablet 400 mg PO QDAY tab 02/07/18 08/02/18 History Docusate Sodium [Colace] 100 mg PO BID PRN cap 02/22/18 08/02/18 Rx Sulfasalazine 500 mg PO BID 08/02/18 08/02/18 History Triamterene/Hydrochlorothiazid 1 ea PO DAILY 08/02/18 08/02/18 History [Triamterene-Hctz 37.5-25 mg Tb] Allergies/Adverse Reactions: Allergies Allergy/AdvReac Type Severity Reaction Status Date / Time No Known Allergies Allergy Verified 08/02/18 13:53 Review of Systems - Review of Systems All Systems: Reviewed & No Additional Complaints Except as Stated Exam - Vitals Vital Signs: Vital Signs Temperature 96.2 F Temperature Source Temporal Artery Scan Pulse Rate [Pulse Oximeter 96 Right] Pulse Rate [Standing] 148 Pulse Rate [Sitting] 129 Pulse Rate [Lying] 80 Respiratory Rate 18 Blood Pressure [Standing] 147/95 Blood Pressure [Sitting] 132/112 Blood Pressure [Lying] 120/78 Blood Pressure [Left Arm] 139/97 Pulse Ox 98 Oxygen Flow Rate 3 lpm n/c Oxygen Delivery Method Mask-Simple Height 5 ft 7 in Weight 290 lb - General General Appearance: No Acute Distress, Cooperative, Morbidly Obese - Head Head Exam: Normal Inspection - Eye Eye Exam: POSITIVE: Normal Appearance - ENT ENT Exam: POSITIVE: Normal Exam - Neck Neck Exam: Normal Inspection - Respiratory Respiratory Exam: POSITIVE: Clear to Auscultation - Bilaterally - Cardiovascular Cardiovascular Exam: POSITIVE: RRR - GI/Abdominal GI/Abdominal Exam: POSITIVE: Normal Bowel Sounds, Non Tender, Non Distended, Soft, No Organomegaly - Rectal Rectal Exam: POSITIVE: Deferred - External Exam: POSITIVE: Deferred - Extremities Extremities Exam: POSITIVE: Normal Inspection - Back Back Exam: POSITIVE: Normal Inspection - Neurological Neurological Exam: POSITIVE: Alert, Oriented x 3, CN II-XII Intact, No Facial Droop, Speech Intact / Clear, Moves All Extremities Equally - Psychiatric Psychiatric Exam: POSITIVE: Normal Affect - Integumentary Integumentary Exam: POSITIVE: Normal Color Results - Labs CBC and BMP: 08/02/18 14:00 08/02/18 15:30 - EKG Data -: EKG Interpreted by Me Rate: Normal EKG Shows Normal: Sinus Rhythm - EKG Data EKG Interpretation: Other (EKG shows normal sinus rhythm with poor R-wave progression in anterior leads) - Imaging Status: Report Reviewed by Me (CT chest 1. Normal CTA of the chest. There are no pulmonary emboli or pulmonary infarcts. Pulmonary arterial hypertension is suspected. 2. Hepatomegaly with diffuse severe fatty infiltration. Chest x-ray Normal chest x-ray. There has been no significant interval change.) Assessment and Plan - Patient Problems (1) Postural orthostatic tachycardia syndrome Current Visit: Yes Status: Acute Comment: Reason unclear but may be secondary to hypovolemia from the recent addition of diuretic. I think will DC the diuretic will give her IV fluid see what's her blood pressure/heart rate numbers tomorrow and then will decide about restarting also her lisinopril. Code(s): R00.0 - Tachycardia, unspecified; I95.1 - Orthostatic hypotension (2) Hypertension Current Visit: No Status: Acute Comment: I said will D/C diuretic, will decide about restarting lisinopril tomorrow. Code(s): I10 - Essential (primary) hypertension (3) History of rheumatoid arthritis Current Visit: No Status: Acute Comment: Continue hydroxychloroquine, xeljance Code(s): Z87.39 - Personal history of other diseases of the musculoskeletal system and connective tissue (4) Diabetes Current Visit: Yes Status: Acute Comment: She is on metformin but will hold off on restarting the metformin because she received contrast. Code(s): E11.9 - Type 2 diabetes mellitus without complications (5) Pulmonary hypertension Current Visit: Yes Status: Acute Comment: There is suggestion of pulmonary hypertension on the CT scan that she had. I did tell her that she need to have an echocardiogram at one point in time to measure the pressure and to confrim the presence of pulmonary hypertension. I'm not sure her symptoms are due to that. But need to be investigated later on as an outpatient. She said may be she snores but she doesn't think she has sleep apnea. This need to be investigated I think also later on as an outpatient Code(s): I27.20 - Pulmonary hypertension, unspecified
[2018-08-02] MEDS ORDERED: ONDANSETRON 4 MG/2 ML VIAL IVP PRN (20:12)
[2018-08-02] MEDS ORDERED: DOCUSATE 100 MG CAPSULE PO PRN (20:12)
[2018-08-02] MEDS ORDERED: CALCIUM CARBONATE 500 MG (TUMS) CHEWABLE TABLET PO PRN (20:12)
[2018-08-02] MEDS ORDERED: LIDOCAINE W/ SODIUM BICARB 0.5 ML SYR SUBD PRN (20:12)
[2018-08-02] MEDS: DULOXETINE 60 MG CAPSULE PO SCH ×2 (20:43→20:56)
[2018-08-02] MEDS: Lactated Ringers 1,000 ML PRIMARY IV SCH (20:43)
[2018-08-02] MEDS: HYDROXYCHLOROQUINE SULFATE 400 MG PO SCH (20:57)
[2018-08-02] MEDS ORDERED: Sodium Chloride 0.9% 500 ML PRIMARY IV ONE (23:00)
[2018-08-02] MEDS ORDERED: Sodium Chloride 0.9% 500 ML ONE (23:06)
[2018-08-03] MEDS: Lactated Ringers 1,000 ML PRIMARY IV SCH (04:20)
[2018-08-03] MEDS: ACETAMINOPHEN 325 MG TABLET PO PRN ×2 (04:20→10:21)
[2018-08-03 06:12] LABS: BASOPHILS # (AUTO) 0.06 10*3/UL; BASOPHILS % (AUTO) 1.1 % (0-1); EOSINOPHILS # (AUTO) 0.12 10*3/UL; EOSINOPHILS % (AUTO) 2.1 % (0-8); Hematocrit [HCT] 40.4 % (37.0-47.0); Hemoglobin [HGB] 13.6 g/dL (12.0-16.0); LYMPHOCYTES # (AUTO) 2.32 10*3/uL; MEAN CORPUSCULAR HGB CONC 33.7 g/dL (33-37); MEAN CORPUSCULAR VOLUME 89.2 FL (81-99); MEAN PLATELET VOLUME 10.3 FL (7.4-12.2); MONOCYTES % (AUTO) 5.3 % (5-15); NEUTROPHILS % (AUTO) 50.7 % (50-80); RED BLOOD COUNT 4.53 10^6/uL (4.20-5.40)
[2018-08-03 06:13] LABS: PLATELET MORPHOLOGY COMMENT NORMAL MORPHOLOGY (NORM); RBC MORPHOLOGY COMMENT NORMAL MORPHOLOGY (NORM); WBC MORPHOLOGY COMMENT NORMAL MORPHOLOGY (NORM)
[2018-08-03 06:35] LABS: BLOOD UREA NITROGEN 15 mg/dL (7-22); BUN/CREATININE RATIO 18.75 (6-20); SERUM ALBUMIN 3.9 g/dL (3.5-4.8)
[2018-08-03] MEDS ORDERED: LISINOPRIL 20 MG TABLET PO SCH (09:00)
[2018-08-03] MEDS ORDERED: HYDROXYCHLOROQUINE SULFATE 400 MG PO SCH (09:00)
[2018-08-03] MEDS ORDERED: Metoprolol TARTRATE Tab 25 MG TAB PO SCH (09:39)
--- NOTE | 2018-08-03 09:44 | PDOC(PROG) ---
Date of Service: 08/03/18 Time of Service: 09:45 Interval History: Subjective Patient said she still feel the same, still feel her heart pounding when she stand up. She did feel some short of breath as that she went to the bathroom. No chest pain. Did report at times when she turned her head she feel dizzy. Have some mild headache. Objective : Data - Labs CBC and BMP: 08/03/18 06:05 08/03/18 06:05 Objective : Exam - General General Appearance: No Acute Distress, Cooperative, Morbidly Obese - Head Head Exam: Normal Inspection - Eye Eye Exam: Normal Appearance - ENT ENT Exam: Normal Exam - Neck Neck Exam: Normal Inspection - Respiratory Respiratory Exam: Clear to Auscultation - Bilaterally - Cardiovascular Cardiovascular Exam: RRR - GI/Abdominal GI/Abdominal Exam: Normal Bowel Sounds, Non Tender, Non Distended, Soft, No Organomegaly - Rectal Rectal Exam: Deferred - External Exam: Deferred - Extremities Extremities Exam: Normal Inspection - Back Back Exam: Normal Inspection - Neurological Neurological Exam: Alert, Oriented x 3, CN II-XII Intact, No Facial Droop, Speech Intact / Clear, Moves All Extremities Equally - Psychiatric Psychiatric Exam: Normal Affect - Integumentary Integumentary Exam: Normal Color Assessment and Plan - Patient Problems (1) Postural orthostatic tachycardia syndrome Current Visit: Yes Status: Acute Comment: We tried giving her some fluid in case there is some hypovolemia, however that did not make much of a difference. Her heart rate still goes up from 70-131 from lying to standing. I did note her heart rate goes up to 148 when she walked to the bathroom. I did speak with the rn long term care Dr. Talavera he suggested starting her on Cardizem and metoprolol. I think we'll see her symptoms and then will will DC the diuretics and the lisinopril. Code(s): R00.0 - Tachycardia, unspecified; I95.1 - Orthostatic hypotension (2) Hypertension Current Visit: No Status: Acute Comment: We'll use Cardizem and metoprolol to replace her previous medications. Code(s): I10 - Essential (primary) hypertension (3) History of rheumatoid arthritis Current Visit: No Status: Acute Comment: Same medications Code(s): Z87.39 - Personal history of other diseases of the musculoskeletal system and connective tissue (4) Diabetes Current Visit: Yes Status: Acute Comment: We'll hold her metformin for another day because of the contrast. Code(s): E11.9 - Type 2 diabetes mellitus without complications (5) Pulmonary hypertension Current Visit: Yes Status: Acute Comment: Dr. Talavera said he is willing to see her on Sunday morning in the clinic to do an echocardiogram. Code(s): I27.20 - Pulmonary hypertension, unspecified
[2018-08-03] MEDS ORDERED: DILTIAZEM HCL CD 120 MG CAP PO SCH (09:45)
[2018-08-03] MEDS: TOFACITINIB CITRATE 11 MG PO SCH (10:31)
[2018-08-03] MEDS: DILTIAZEM HCL CD 120 MG CAP PO SCH (10:53)
[2018-08-03] MEDS: DULOXETINE 60 MG CAPSULE PO SCH (10:54)
--- NOTE | 2018-08-03 13:07 | DI ---
EXAM: US Duplex Bilateral Lower Extremity Veins CLINICAL HISTORY: elevated d-dimer; shortness of breath. Evaluate for DVT. TECHNIQUE: Real-time duplex ultrasound scan of the bilateral lower extremity veins integrating B-mode two-dimensional vascular structure, Doppler spectral analysis, color flow Doppler imaging and compression. COMPARISON: No relevant prior studies available. FINDINGS: Right deep veins: Unremarkable. No DVT in the right common femoral, femoral, proximal deep femoral or popliteal veins. The veins demonstrate normal color flow, are normally compressible, with normal phasic flow and/or augmentation response. Right superficial veins: Unremarkable. No thrombus in the visualized right great saphenous vein. Left deep veins: Unremarkable. No DVT in the left common femoral, femoral, proximal deep femoral or popliteal veins. The veins demonstrate normal color flow, are normally compressible, with normal phasic flow and/or augmentation response. Left superficial veins: Unremarkable. No thrombus in the visualized left great saphenous vein. Soft tissues: No popliteal cyst. IMPRESSION: Unremarkable bilateral lower extremity duplex venous ultrasound.
[2018-08-03] MEDS ORDERED: Metoprolol TARTRATE Tab 25 MG TAB PO ONE (14:28)
[2018-08-03] MEDS ORDERED: FLUDROCORTISONE ACETATE 0.1 MG TABLET PO ONE (17:11)
[2018-08-03] MEDS: HYDROXYCHLOROQUINE SULFATE 400 MG PO SCH (20:31)
[2018-08-03] MEDS: Metoprolol TARTRATE Tab 25 MG TAB PO SCH (20:31)
[2018-08-04 07:18] VITALS: BP 124/81; RESP 17; TEMP 97.8
[2018-08-04] MEDS ORDERED: FLUDROCORTISONE ACETATE 0.1 MG TABLET PO SCH (09:00)
[2018-08-04] MEDS ORDERED: ENOXAPARIN SODIUM 40 MG/0.4 ML SYRINGE SUBCUT SCH (09:00)
[2018-08-04] MEDS: DILTIAZEM HCL CD 120 MG CAP PO SCH (09:25)
[2018-08-04] MEDS: Metoprolol TARTRATE Tab 25 MG TAB PO SCH (09:26)
[2018-08-04] MEDS: DULOXETINE 60 MG CAPSULE PO SCH (09:28)
[2018-08-04 09:29] VITALS: O2SAT 97
[2018-08-04] MEDS: TOFACITINIB CITRATE 11 MG PO SCH (09:29)
--- NOTE | 2018-08-04 09:33 | DCSUMMARY ---
Hospitalization Summary Admit Date: 08/02/2018 Discharge Date: 08/04/18 Hospital Course: Discharge diagnoses 1. Postural orthostatic tachycardia syndrome 2. History of rheumatoid arthritis 3. History of hypertension 4. History of diabetes 5. History of fibromyalgia 6. Obesity 7. Possible pulmonary hypertension on CT need follow-up Hospital course This is a 47 years old female with medical history significant for history of diabetes, hypertension, history of rheumatoid arthritis and fibromyalgia who was sent to the ER from the clinic she been having symptoms of fatigue, shortness of breath and palpitation when she stands up. Symptoms got worse the last few days may be worse on the day of admission. She did not go to work that day because of feeling worse. she went to the clinic and from there she was sent to the ER. She did report some pain in her jaw/neck and that resolved. She did receive some fluid in the ER. The CT of the chest was negative for PE but there is a suspicion of pulmonary hypertension. She continued to have tachycardia and symptoms when she stand up so she was admitted. When I saw her she was feeling better as she was laying down. There was no more pain in her neck or jaw. 2 weeks prior to presentation her Blood pressure was on the high side so diuretic was added to her medication however she stopped her lisinopril as she thought that she was suppose to take only the diuretic and she was not taking her lisinopril. However a week prior to presentation she started taking both medications. In addition for her rheumatoid arthritis sulfadiazine was started also 2 weeks prior to Presentation. Her exam apart from obesity was not remarkable. We thought may be she had some hypovolemia and maybe that's contributing to her postural orthostatic tachycardia syndrome. There was no drop in blood pressure it was only the heart rate would go up. We gave some fluid overnight the next day she did not feel improvement. I did discuss it with the classics professor Dr. Talavera he suggested switching her medication the diuretic and lisinopril to metoprolol and Cardizem. We did that she continued to have symptoms I added Florinef and we used elastic stocking. on The day of discharge she was feeling better a lot better she said. She did walk around her heart rate did not rise like before and no significant change in the heart rate with posture. We thought that she could be discharged home and follow-up with cardiology. I did speak with Dr. Talavera and he told me he can see her on Sunday 10 am. There is a question of pulmonary hypertension on CT so she need an echo and can be done as an outpatient as we don't have the capability to do it over the weekend. I did send cortisol and metanephrine level. She need chemistry next week to be followed up as an outpatient with her primary. Discharge instruction Diet regular Activity as started Medications Current Medication(s) Medication Instructions Recorded Confirmed Type DULoxetine HCl [Cymbalta] 60 mg PO BEDTIME 06/23/11 08/02/18 History Tofacitinib Citrate [Xeljanz Xr] 11 mg PO DAILY 03/26/17 08/02/18 History metformin 500 mg tablet 1,000 mg PO BID tab 01/31/18 08/02/18 History hydroxychloroquine 200 mg tablet 400 mg PO QDAY tab 02/07/18 08/02/18 History Docusate Sodium [Colace] 100 mg PO BID PRN cap 02/22/18 08/02/18 Rx Sulfasalazine 500 mg PO BID 08/02/18 08/02/18 History Diltiazem 24Hr ER [Cardizem Cd] 120 mg PO DAILY #30 cap.sr.24h 08/04/18 Rx Fludrocortisone Acetate [Florinef 0.1 mg PO DAILY #30 tab 08/04/18 Rx Acetate] Metoprolol Tartrate Tab 25 mg PO BID #60 tab 08/04/18 Rx [Lopressor Tab] Follow-up with PCP in 1-2 weeks, with Dr. Talavera tomorrow Condition at discharge was stable for discharge Exam - Vitals Vital Signs: Vital Signs Temperature 97.8 F Temperature Source Temporal Artery Scan Pulse Rate [Pulse Oximeter 62 Left] Pulse Rate [Pulse Oximeter 119 Right] Pulse Rate [left finger] 70 Pulse Rate [Standing] 104 Pulse Rate [Sitting] 98 Pulse Rate [Lying] 62 Pulse Rate 63 Respiratory Rate 17 Blood Pressure [Standing] 147/94 Blood Pressure [Sitting] 149/91 Blood Pressure [Lying] 124/81 Blood Pressure [Left Arm] 123/95 Blood Pressure 147/95 Pulse Ox [left finger] 97 Pulse Ox 96 Oxygen Flow Rate [left finger] 1 Oxygen Flow Rate 1 Oxygen Delivery Method [left Nasal Cannula finger] Oxygen Delivery Method Room Air Height 5 ft 7 in Weight 288 lb 3.2 oz - General General Appearance: No Acute Distress, Cooperative, Morbidly Obese - Head Head Exam: Normal Inspection - Eye Eye Exam: POSITIVE: Normal Appearance - ENT ENT Exam: POSITIVE: Normal Exam - Neck Neck Exam: Normal Inspection - Respiratory Respiratory Exam: POSITIVE: Clear to Auscultation - Bilaterally - Cardiovascular Cardiovascular Exam: POSITIVE: RRR - GI/Abdominal GI/Abdominal Exam: POSITIVE: Normal Bowel Sounds, Non Tender, Non Distended, Soft, No Organomegaly - Rectal Rectal Exam: POSITIVE: Deferred - External Exam: POSITIVE: Deferred - Extremities Extremities Exam: POSITIVE: Normal Inspection - Back Back Exam: POSITIVE: Normal Inspection - Neurological Neurological Exam: POSITIVE: Alert, Oriented x 3, CN II-XII Intact, No Facial Droop, Speech Intact / Clear - Psychiatric Psychiatric Exam: POSITIVE: Normal Affect Patient Problems - Patient Problem List (1) Postural orthostatic tachycardia syndrome Current Visit: Yes Status: Acute Code(s): R00.0 - Tachycardia, unspecified; I95.1 - Orthostatic hypotension Category: Medical (2) Hypertension Current Visit: No Status: Acute Code(s): I10 - Essential (primary) hypertension Category: Medical (3) History of rheumatoid arthritis Current Visit: No Status: Acute Code(s): Z87.39 - Personal history of other diseases of the musculoskeletal system and connective tissue Category: Medical (4) Diabetes Current Visit: Yes Status: Acute Code(s): E11.9 - Type 2 diabetes mellitus without complications Category: Medical (5) Pulmonary hypertension Current Visit: Yes Status: Acute Code(s): I27.20 - Pulmonary hypertension, unspecified Category: Medical
--- NOTE | 2018-08-05 08:30 | EKG ---
[address] [address] Measurements Intervals Bates Rate: 84 P: 34 UT: 155 QRS: 42 QRSD: 93 T: 42 QT: 383 QTc: 424 Interpretive Statements SINUS RHYTHM Compared to ECG 08/02/2018 14:38:52 No significant changes Electronically Signed On 08-05-18 14:31:35 MDT by Jay Araiza [id number]
[2018-08-07 11:53] LABS: METANEPHRINE FREE <0.20 nmol/L (<0.50)
== END 2018-08-04 12:22 | disposition home or self-care (01) ==
LOC: MED/SURG 13:51 → ER 13:51 → MED/SURG 19:32
PROVIDERS: ADMIT Internal Medicine; ATTEND Internal Medicine